=== PATIENT | female | born 1990 | race African-American/Black ===

== ENCOUNTER 2023-03-14 07:32 | Emergency (ER) | payer OTHER ==
[~2023-03-14] VITALS: Ht 152.4 cm; Wt 42.9 kg
[2023-03-14 07:52] VITALS: BP 122/83; PULSE 83; RESP 16; TEMP 98.8; O2SAT 100
== END 2023-03-14 10:29 | disposition home or self-care (01) ==
LOC: ER 07:32
DX: N63.10 Unspecified lump in the right breast, unspecified quadrant (principal)
CPT/HCPCS: 76642

== ENCOUNTER 2023-12-21 20:19 | Inpatient (IN) | payer OTHER ==
[~2023-12-21] VITALS: Ht 152.4 cm; Wt 47.4 kg
[2023-12-21 21:39] LABS: Basophils # (auto) 0 10 ^3/uL (0-0.2); Basophils % (auto) 0.5 % (0.0-2.0); Eosinophils # (auto) 0 10 ^3/uL (0-0.8); Eosinophils % (auto) 0.1 % (0.0-7.0); Hematocrit 38.6 % (36.0-46.0); Hemoglobin 13.4 g/dL (12.2-16.2); Lymphocytes # (auto) 1.5 10 ^3/uL (0.4-5.4); Mean Corpuscular Hemoglobin 32.1 pg (28.0-32.0); Mean Corpuscular Hgb Conc. 34.6 g/dL (32.0-36.0); Mean Corpuscular Volume 92.8 fL (80.0-100.0); Monocytes # (auto) 1.1 10 ^3/uL (0-1.3); Monocytes % (auto) 10.3 % (0.0-12.0); Neutrophils # (auto) 8.1 10 ^3/uL (1.6-8.6); Neutrophils % (auto) 75.1 % (37.0-80.0); Red Blood Cells 4.16 10^6/uL (4.0-5.20); Red Cell Distribution Width 11.7 % (11.8-14.3); White Blood Cell 10.8 10^3/uL (4.4-10.8)
[2023-12-21 21:43] LABS: Albumin 4.8 g/dL (3.2-4.8); Alkaline Phosphatase 50 U/L (46-116); Anion Gap 5 (5-15); Aspartate Aminotransferase 13 U/L (13-40); Bilirubin, Total 0.6 mg/dL (0.2-1.0); Calcium 9.7 mg/dL (8.5-10.1); Carbon Dioxide 28 mmol/L (20-30); Chloride 101 mmol/L (98-107); Glucose 101 mg/dL (74-106); Potassium 3.8 mmol/L (3.5-5.1); Sodium 134 mmol/L (136-145)
[2023-12-21 21:51] LABS: Urine Bacteria FEW /hpf (None Seen); Urine Blood 2+ /uL (Negative); Urine Clarity Turbid (Clear); Urine Color Light-Orange (Yellow); Urine Mucus FEW (None Seen); Urine Protein, UAD 1+ (Negative); Urine Specific Gravity 1.017 (1.001-1.035); Urine Urobilinogen Normal (Negative); Urine WBC 539 /hpf (0 - 5); Urine WBC Clumps PRESENT /hpf (None Seen)
[2023-12-21 21:52] LABS: Alanine Aminotransferase < 9 U/L (7-40); BUN/Creatinine Ratio 6.8 (10.0-20.0); Blood Urea Nitrogen < 5 mg/dL (9-23)
[2023-12-22] MEDS: CIPROFLOXACIN 400MG/200ML 200 ML IV ONE (00:54)
[2023-12-22] MEDS: HYDROcodone-ACET 5/325MG TAB PO ONE (00:55)
[2023-12-22] MEDS: ONDANSETRON ODT 4 MG TAB PO ONE (00:56)
[2023-12-22] MEDS ORDERED: MORPHINE SULFATE INJ 2 MG/ml SYRG IV PRN (02:30)
[2023-12-22] MEDS ORDERED: ACETAMINOPHEN 325 MG TAB PO PRN (02:30)
[2023-12-22] MEDS ORDERED: TEMAZEPAM 15 MG CAP PO PRN (02:30)
[2023-12-22 03:40] VITALS: PULSE 83; RESP 17; O2SAT 99
[2023-12-22 07:30] VITALS: PULSE 99; RESP 20; O2SAT 97
[2023-12-22] MEDS: cefTRIAXone 1GM/50ML D5W 50 ML IV SCH (10:36)
[2023-12-22] MEDS: SODIUM CHLORIDE 0.9% 1,000 ML IV SCH (10:37)
[2023-12-22] MEDS: HYDROcodone-ACET 5/325MG TAB PO PRN (10:37)
[2023-12-22] MEDS: TAMSULOSIN HYDROCHLORIDE 0.4 MG CAP PO ONE (10:42)
[2023-12-22] MEDS: ONDANSETRON HCL 4 MG/2 ML VIAL IV PRN (10:42)
[2023-12-22 12:22] LABS: Alanine Aminotransferase 11 U/L (7-40); Albumin 4.5 g/dL (3.2-4.8); Alkaline Phosphatase 57 U/L (46-116); Anion Gap 9 (5-15); Aspartate Aminotransferase 18 U/L (13-40); Bilirubin, Total 0.6 mg/dL (0.2-1.0); Calcium 9.5 mg/dL (8.5-10.1); Carbon Dioxide 26 mmol/L (20-30); Chloride 101 mmol/L (98-107); Glucose 88 mg/dL (74-106); Potassium 3.6 mmol/L (3.5-5.1); Sodium 136 mmol/L (136-145); Total Protein 7.4 g/dL (5.7-8.2)
[2023-12-22 12:23] LABS: Basophils # (auto) 0 10 ^3/uL (0-0.2); Basophils % (auto) 0.3 % (0.0-2.0); Eosinophils # (auto) 0 10 ^3/uL (0-0.8); Eosinophils % (auto) 0.4 % (0.0-7.0); Hematocrit 42.2 % (36.0-46.0); Hemoglobin 13.7 g/dL (12.2-16.2); Lymphocytes # (auto) 1.2 10 ^3/uL (0.4-5.4); Lymphocytes % (auto) 12.6 % (10.0-50.0); Mean Corpuscular Hemoglobin 31.6 pg (28.0-32.0); Mean Corpuscular Hgb Conc. 32.3 g/dL (32.0-36.0); Mean Corpuscular Volume 97.6 fL (80.0-100.0); Monocytes # (auto) 1.1 10 ^3/uL (0-1.3); Monocytes % (auto) 11.2 % (0.0-12.0); Neutrophils # (auto) 7.2 10 ^3/uL (1.6-8.6); Neutrophils % (auto) 75.5 % (37.0-80.0); Nucleated Red Blood Cells % 0.1 %; Red Blood Cells 4.33 10^6/uL (4.0-5.20); Red Cell Distribution Width 11.9 % (11.8-14.3); White Blood Cell 9.6 10^3/uL (4.4-10.8)
[2023-12-22 12:27] LABS: Blood Urea Nitrogen < 5 mg/dL (9-23)
[2023-12-22 12:32] VITALS: BP 118/67; PULSE 91; RESP 18; TEMP 97.8; O2SAT 95
[2023-12-22 16:55] VITALS: BP 132/77; PULSE 91; RESP 16; TEMP 98.5; O2SAT 97
[2023-12-22 20:00] VITALS: BP 103/56; PULSE 96; RESP 18; TEMP 98.7; O2SAT 98
[2023-12-22 21:00] VITALS: BP 116/66; PULSE 64; RESP 19; TEMP 98.2; O2SAT 100
[2023-12-23] VITALS (7 sets, daily range): BP systolic 102–126; BP diastolic 57–74; PULSE 51–90; RESP 14–20; TEMP 97.8–98.5; O2SAT 0–100
[2023-12-23 07:25] LABS: Basophils # (auto) 0 10 ^3/uL (0-0.2); Basophils % (auto) 0.4 % (0.0-2.0); Eosinophils # (auto) 0 10 ^3/uL (0-0.8); Eosinophils % (auto) 0.6 % (0.0-7.0); Hematocrit 36.9 % (36.0-46.0); Hemoglobin 12.4 g/dL (12.2-16.2); Lymphocytes # (auto) 1.6 10 ^3/uL (0.4-5.4); Lymphocytes % (auto) 21.3 % (10.0-50.0); Mean Corpuscular Hemoglobin 32.1 pg (28.0-32.0); Mean Corpuscular Hgb Conc. 33.6 g/dL (32.0-36.0); Mean Corpuscular Volume 95.3 fL (80.0-100.0); Monocytes # (auto) 0.9 10 ^3/uL (0-1.3); Monocytes % (auto) 12.1 % (0.0-12.0); Neutrophils % (auto) 65.6 % (37.0-80.0); Red Blood Cells 3.87 10^6/uL (4.0-5.20); White Blood Cell 7.6 10^3/uL (4.4-10.8)
[2023-12-23 07:32] LABS: Chloride 107 mmol/L (98-107); Potassium 3.5 mmol/L (3.5-5.1)
[2023-12-23 07:33] LABS: Anion Gap 7 (5-15); Carbon Dioxide 24 mmol/L (20-30); Sodium 138 mmol/L (136-145)
[2023-12-23 07:34] LABS: Calcium 8.7 mg/dL (8.7-10.4)
[2023-12-23 07:38] LABS: Glucose 89 mg/dL (74-106)
[2023-12-23 07:41] LABS: BUN/Creatinine Ratio 8.6 (10.0-20.0); Blood Urea Nitrogen < 5 mg/dL (9-23)
[2023-12-23 10:54] LABS: Amphetamine Screen, Urine Neg (NEGATIVE); Barbiturate Scree,Urine Neg (NEGATIVE); Benzodiazephine Screen, Urine Neg (NEGATIVE); Cannabinoid Screen, Urine Pos (NEGATIVE); Cocaine Screen, Urine Neg (NEGATIVE); Opiate Scree,Urine Pos (NEGATIVE); Phencyclidine Screen, Urine Neg (NEGATIVE)
[2023-12-23] MEDS: TAMSULOSIN HYDROCHLORIDE 0.4 MG CAP PO SCH (18:14)
[2023-12-24 01:00] VITALS: BP 95/74; PULSE 91; RESP 17; TEMP 98.2; O2SAT 98
[2023-12-24 05:00] VITALS: BP 99/60; PULSE 76; RESP 18; TEMP 98; O2SAT 100
[2023-12-24 06:13] LABS: Basophils # (auto) 0 10 ^3/uL (0-0.2); Basophils % (auto) 0.8 % (0.0-2.0); Eosinophils # (auto) 0.1 10 ^3/uL (0-0.8); Eosinophils % (auto) 1.3 % (0.0-7.0); Hematocrit 33.3 % (36.0-46.0); Hemoglobin 11.2 g/dL (12.2-16.2); Lymphocytes # (auto) 1.8 10 ^3/uL (0.4-5.4); Lymphocytes % (auto) 32.7 % (10.0-50.0); Mean Corpuscular Hemoglobin 31.6 pg (28.0-32.0); Mean Corpuscular Hgb Conc. 33.7 g/dL (32.0-36.0); Mean Corpuscular Volume 93.8 fL (80.0-100.0); Monocytes # (auto) 0.7 10 ^3/uL (0-1.3); Monocytes % (auto) 13.3 % (0.0-12.0); Neutrophils # (auto) 2.9 10 ^3/uL (1.6-8.6); Neutrophils % (auto) 51.9 % (37.0-80.0); Nucleated Red Blood Cells % 0.2 %; Red Blood Cells 3.55 10^6/uL (4.0-5.20); Red Cell Distribution Width 11.5 % (11.8-14.3); White Blood Cell 5.6 10^3/uL (4.4-10.8)
[2023-12-24 06:27] LABS: Anion Gap 3 (5-15); Calcium 8.7 mg/dL (8.7-10.4); Carbon Dioxide 27 mmol/L (20-30); Chloride 110 mmol/L (98-107); Potassium 3.9 mmol/L (3.5-5.1); Sodium 140 mmol/L (136-145)
[2023-12-24 06:33] LABS: Glucose 83 mg/dL (74-106)
[2023-12-24 06:38] LABS: BUN/Creatinine Ratio 7.7 (10.0-20.0); Blood Urea Nitrogen < 5 mg/dL (9-23)
[2023-12-24 09:00] VITALS: BP 119/98; PULSE 69; RESP 16; TEMP 98; O2SAT 100
[2023-12-24] MEDS ORDERED: TAMS-35 PO ×2 (09:11→11:09)
[2023-12-24] MEDS ORDERED: CEFP200T15 PO (09:11)
[2023-12-24] MEDS ORDERED: IBUP-1453 PO (09:11)
[2023-12-24] MEDS ORDERED: ZOFR4T PO (14:09)
[2023-12-24 14:14] VITALS: BP 119/68; PULSE 69; RESP 16; TEMP 98; O2SAT 100
== END 2023-12-24 15:16 | disposition home or self-care (01) | DRG 465 ==
LOC: ER 20:19 → OVERFLOW 12-22 02:22 → WEST WING 12-22 09:59
PROVIDERS: ADMIT Internal Medicine; ATTEND Internal Medicine
DX: N20.0 Calculus of kidney (principal); R71.0 Precipitous drop in hematocrit; F12.90 Cannabis use, unspecified, uncomplicated; F17.200 Nicotine dependence, unspecified, uncomplicated; N39.0 Urinary tract infection, site not specified; R31.9 Hematuria, unspecified; Z80.3 Family history of malignant neoplasm of breast; Z82.49 Family history of ischemic heart disease and other diseases of the circulatory system
CPT/HCPCS: 36415; 74018; 74176; 76705; 80048; 80053; 80061; 80307; 81001; 83735; 84443; 85025; 87086; 87088; 87186; G0378; J2405; Q0162

== ENCOUNTER 2023-12-30 15:53 | Inpatient (IN) | payer OTHER ==
[~2023-12-30] VITALS: Ht 160 cm; Wt 46.0 kg
[~2023-12-30 15:53] MED LIST: CEFP200T15 PO; IBUP-1453 PO; TAMS-35 PO; ZOFR4T PO
[2023-12-30 17:18] LABS: Urine Bacteria None Seen /hpf (None Seen)
[2023-12-30 17:27] LABS: Urine Blood Negative /uL (Negative); Urine Clarity Clear (Clear); Urine Color Colorless (Yellow); Urine Protein, UAD Negative (Negative); Urine Urobilinogen Normal (Negative); Urine WBC 3 /hpf (0 - 5)
[2023-12-30 18:21] LABS: Basophils # (auto) 0 10 ^3/uL (0-0.2); Eosinophils # (auto) 0.1 10 ^3/uL (0-0.8); Eosinophils % (auto) 1.5 % (0.0-7.0); Monocytes # (auto) 0.5 10 ^3/uL (0-1.3); Neutrophils # (auto) 4.2 10 ^3/uL (1.6-8.6); Nucleated Red Blood Cells % 0.1 %
[2023-12-30 18:23] LABS: Basophils % (auto) 0.4 % (0.0-2.0); Hemoglobin 12.5 g/dL (12.2-16.2); Lymphocytes # (auto) 2.3 10 ^3/uL (0.4-5.4); Lymphocytes % (auto) 32.4 % (10.0-50.0); Mean Corpuscular Hemoglobin 31.7 pg (28.0-32.0); Mean Corpuscular Hgb Conc. 33.7 g/dL (32.0-36.0); Mean Corpuscular Volume 93.9 fL (80.0-100.0); Monocytes % (auto) 6.7 % (0.0-12.0); Red Blood Cells 3.95 10^6/uL (4.0-5.20); Red Cell Distribution Width 12.3 % (11.8-14.3)
[2023-12-30 18:32] LABS: Chloride 106 mmol/L (98-107); Potassium 3.6 mmol/L (3.5-5.1); Sodium 137 mmol/L (136-145)
[2023-12-30 18:33] LABS: Anion Gap 2 (5-15); Calcium 9.6 mg/dL (8.5-10.1); Carbon Dioxide 29 mmol/L (20-30)
[2023-12-30 18:38] LABS: BUN/Creatinine Ratio 9.4 (10.0-20.0); Blood Urea Nitrogen 6 mg/dL (9-23); Glucose 97 mg/dL (74-106)
[2023-12-30] MEDS ORDERED: ACETAMINOPHEN 325 MG TAB PO PRN (19:30)
[2023-12-30] MEDS: NICOTINE 7MG/24HR TOPICAL PATCH TD ONE (19:45)
[2023-12-30 20:40] LABS: INR 0.98 (0.9-1.15); Partial Thromboplastin Time 27.6 SEC (24.5-34.5); Prothrombin Time 10.4 sec (9.3-11.8)
[2023-12-31] VITALS (7 sets, daily range): BP systolic 92–115; BP diastolic 54–72; PULSE 76–95; RESP 13–20; TEMP 97.8–98.2; O2SAT 97–100
[2023-12-31] MEDS: SODIUM CHLORIDE 0.9% 1,000 ML IVB ONE (01:06)
[2023-12-31] MEDS: PANTOPRAZOLE 40 MG/10 ML VIAL INJ IV ONE (01:07)
[2023-12-31] MEDS: SODIUM CHLORIDE 0.9% 1,000 ML IV SCH ×2 (01:07→17:55)
[2023-12-31] MEDS: PROCHLORPERAZINE EDISYLATE 5 MG/ML 2ML VIAL IV ONE (01:07)
[2023-12-31] MEDS: MORPHINE SULFATE 4 MG/ML SYR/VIAL IV ONE (01:07)
[2023-12-31 04:31] LABS: Eosinophils # (auto) 0.1 10 ^3/uL (0-0.8); Hemoglobin 11.8 g/dL (12.2-16.2); Neutrophils # (auto) 3.3 10 ^3/uL (1.6-8.6); Nucleated Red Blood Cells % 0.1 %; White Blood Cell 6.5 10^3/uL (4.4-10.8)
[2023-12-31 04:33] LABS: Basophils # (auto) 0 10 ^3/uL (0-0.2); Basophils % (auto) 0.7 % (0.0-2.0); Eosinophils % (auto) 1.4 % (0.0-7.0); Hematocrit 34.8 % (36.0-46.0); Lymphocytes # (auto) 2.5 10 ^3/uL (0.4-5.4); Mean Corpuscular Hemoglobin 31.6 pg (28.0-32.0); Mean Corpuscular Hgb Conc. 33.9 g/dL (32.0-36.0); Mean Corpuscular Volume 93.1 fL (80.0-100.0); Monocytes # (auto) 0.5 10 ^3/uL (0-1.3); Monocytes % (auto) 7.9 % (0.0-12.0); Red Blood Cells 3.74 10^6/uL (4.0-5.20); Red Cell Distribution Width 12.1 % (11.8-14.3)
[2023-12-31 04:41] LABS: Chloride 109 mmol/L (98-107); Potassium 3.4 mmol/L (3.5-5.1); Sodium 139 mmol/L (136-145)
[2023-12-31 04:42] LABS: Anion Gap 3 (5-15); Calcium 8.8 mg/dL (8.7-10.4); Carbon Dioxide 27 mmol/L (20-30)
[2023-12-31 04:47] LABS: BUN/Creatinine Ratio 8.5 (10.0-20.0); Blood Urea Nitrogen < 5 mg/dL (9-23); Glucose 91 mg/dL (74-106)
[2023-12-31] MEDS: NICOTINE 7MG/24HR TOPICAL PATCH TD SCH (11:54)
[2023-12-31] MEDS: SODIUM CHLORIDE 0.9% 2,000 ML IV ONE (16:41)
[2023-12-31] MEDS: TAMSULOSIN HYDROCHLORIDE 0.4 MG CAP PO SCH (16:41)
[2024-01-01 01:00] VITALS: BP 93/56; PULSE 94; RESP 17; TEMP 98.1; O2SAT 98
[2024-01-01] MEDS: HYDROcodone-ACET 5/325MG TAB PO PRN (01:38)
[2024-01-01] MEDS: ONDANSETRON HCL 4 MG/2 ML VIAL IV PRN (01:41)
[2024-01-01 05:00] VITALS: BP 95/47; PULSE 80; RESP 17; TEMP 98.2; O2SAT 99
[2024-01-01 09:00] VITALS: BP 110/53; PULSE 87; RESP 18; TEMP 98.7; O2SAT 100
[2024-01-01] MEDS: MORPHINE SULFATE INJ 2 MG/ml SYRG IV PRN (10:08)
[2024-01-01 12:54] VITALS: BP 101/71; PULSE 80; RESP 20; TEMP 97.4; O2SAT 100
[2024-01-01] MEDS ORDERED: TAMS-35 PO (13:14)
[2024-01-01 15:44] VITALS: BP 101/71; PULSE 80; RESP 20; TEMP 97.4; O2SAT 100
[2024-01-01] MEDS: ACETAMINOPHEN 325 MG TAB PO PRN (16:28)
== END 2024-01-01 17:11 | disposition home or self-care (01) | DRG 465 ==
LOC: ER 15:53 → OVERFLOW 19:29 → WEST WING 19:29
PROVIDERS: ADMIT Registered Nurse; ATTEND Nurse Practitioner Acute Care
DX: N20.0 Calculus of kidney (principal); I95.9 Hypotension, unspecified; F12.90 Cannabis use, unspecified, uncomplicated; F17.200 Nicotine dependence, unspecified, uncomplicated; Z87.442 Personal history of urinary calculi; Z79.1 Long term (current) use of non-steroidal anti-inflammatories (NSAID); Z79.899 Other long term (current) drug therapy; Z80.3 Family history of malignant neoplasm of breast; Z82.49 Family history of ischemic heart disease and other diseases of the circulatory system
CPT/HCPCS: 36415; 74018; 80048; 81001; 84702; 85025; 85610; 85730; 86850; 86900; 86901; C9113; G0378; J2405

== ENCOUNTER 2024-03-30 06:30 | Emergency (ER) | payer OTHER ==
[~2024-03-30] VITALS: Ht 152.4 cm; Wt 49.2 kg
[2024-03-30 07:35] LABS: Basophils # (auto) 0.1 10 ^3/uL (0-0.2); Basophils % (auto) 1.3 % (0.0-2.0); Eosinophils # (auto) 0.1 10 ^3/uL (0-0.8); Eosinophils % (auto) 2.2 % (0.0-7.0); Hemoglobin 15.6 g/dL (12.2-16.2); Lymphocytes % (auto) 49.7 % (10.0-50.0); Mean Corpuscular Hgb Conc. 34.7 g/dL (32.0-36.0); Mean Corpuscular Volume 92.3 fL (80.0-100.0); Monocytes # (auto) 0.3 10 ^3/uL (0-1.3); Monocytes % (auto) 8.1 % (0.0-12.0); Neutrophils # (auto) 1.5 10 ^3/uL (1.6-8.6); Neutrophils % (auto) 38.7 % (37.0-80.0); Nucleated Red Blood Cells % 0.2 %; Platelet Count (auto) 335 10^3/uL (140-450); Red Blood Cells 4.88 10^6/uL (4.0-5.20); Red Cell Distribution Width 12.5 % (11.8-14.3); White Blood Cell 3.9 10^3/uL (4.4-10.8)
[2024-03-30 07:47] LABS: Alanine Aminotransferase 26 U/L (7-40); Albumin 4.6 g/dL (3.2-4.8); Alkaline Phosphatase 45 U/L (46-116); Anion Gap 4 (5-15); Aspartate Aminotransferase 18 U/L (13-40); BUN/Creatinine Ratio 7.2 (10.0-20.0); Bilirubin, Total 0.5 mg/dL (0.2-1.0); Blood Urea Nitrogen 6 mg/dL (9-23); Calcium 9.7 mg/dL (8.7-10.4); Carbon Dioxide 27 mmol/L (20-30); Chloride 106 mmol/L (98-107); Glucose 122 mg/dL (74-106); Potassium 3.8 mmol/L (3.5-5.1); Sodium 137 mmol/L (136-145); Total Protein 7.7 g/dL (5.7-8.2)
[2024-03-30] MEDS: KETOROLAC TROMETH 60MG/2ML VIAL IM ONE (08:30)
[2024-03-30] MEDS: ONDANSETRON HCL 4 MG/2 ML VIAL IM ONE (08:32)
[2024-03-30 08:47] LABS: Urine Bacteria None Seen /hpf (None Seen)
[2024-03-30 08:58] LABS: Urine Blood Negative /uL (Negative); Urine Clarity Clear (Clear); Urine Color Light-Yellow (Yellow); Urine Mucus FEW (None Seen); Urine Protein, UAD TRACE (Negative); Urine Urobilinogen Normal (Negative); Urine WBC 8 /hpf (0 - 5); Urine pH 5.5 (5.0-9.0)
[2024-03-30] MEDS ORDERED: NAP500T GT (10:42)
[2024-03-30 11:14] VITALS: BP 124/80; TEMP 98.1
[2024-03-30 11:15] VITALS: PULSE 85; RESP 16; O2SAT 99
== END 2024-03-30 11:17 | disposition home or self-care (01) ==
LOC: ER 06:30
DX: N20.0 Calculus of kidney (principal); R51.9 Headache, unspecified; F12.10 Cannabis abuse, uncomplicated; Z32.02 Encounter for pregnancy test, result negative
CPT/HCPCS: 36415; 74176; 80053; 81001; 81025; 85025; 96372; 99285; J1885; J2405